=== PATIENT | female | born 1995 | race American Indian/Alaskan Native ===

== ENCOUNTER 2019-05-31 19:43 | Emergency (ER) | payer OTHER ==
[2019-05-31 20:07] VITALS: TEMP 98.8; BMI 19.0
--- NOTE | 2019-05-31 20:08 | PDOC ---
Rapid Medical Evaluation Time Seen by Provider: 05/31/19 20:07 Medical Evaluation: Vital Signs Temp Pulse Resp BP Pulse Ox 98.8 F 70 19 116/74 99 05/31/19 20:04 05/31/19 20:04 05/31/19 20:04 05/31/19 20:04 05/31/19 20:04 05/31/19 20:07 I have performed a brief in-person evaluation of this patient. The patient presents with a chief complaint of: 8 weeks , elevated liver enzymes/?hepatitis, ?uti, Pertinent physical exam findings:stable and in NAD, non-focal I have ordered the following:labs The patient will proceed to the ED for further evaluation.
[2019-05-31 21:39] LABS: BASO % 0.5 % (0-2.0); EOS % 0.5 % (0-4.5); HEMATOCRIT 38.3 % (32.4-45.2); HEMOGLOBIN 12.8 GM/dL (10.7-15.3); MCH 29.1 pg (25.7-33.7); MCHC 33.4 g/dl (32.0-36.0); MEAN CELL VOLUME 87.3 fl (80-96); MEAN PLT VOLUME 9.4 fl (7.5-11.1); MONO % 9.2 % (3.8-10.2); NEUT % 63.8 % (42.8-82.8); PLATELET COUNT 225 K/MM3 (134-434); RBC 4.38 M/mm3 (3.60-5.2); RDW 13.5 % (11.6-15.6); WHITE BLOOD COUNT 8.9 K/mm3 (4.0-10.0)
[2019-05-31 21:56] LABS: ALBUMIN 3.9 g/dl (3.4-5.0); BILIRUBIN,TOTAL 0.7 mg/dL (0.2-1); CALCIUM 9.8 mg/dL (8.5-10.1); CREATININE 0.5 mg/dL (0.55-1.3); POTASSIUM 4.2 mmol/L (3.5-5.1); TOT PROT 7.6 g/dl (6.4-8.2)
[2019-05-31 22:39] LABS: PH,URINE 5.5 (5.0-8.0); URINE APPEARANCE CLEAR; URINE BILIRUBIN NEGATIVE (NEGATIVE); URINE COLOR DK YELLOW; URINE GLUCOSE (UA) NEGATIVE (NEGATIVE); URINE KETONE 1+ (NEGATIVE); URINE LEUK ESTERASE NEGATIVE (NEGATIVE); URINE NITRITE NEGATIVE (NEGATIVE); URINE PROTEIN TRACE (NEGATIVE)
[2019-06-01 00:11] VITALS: BP 120/75; PULSE 72
--- NOTE | 2019-06-01 00:23 | PDOC ---
History of Present Illness - General Chief Complaint: Abnormal Lab Results (Outside) Stated Complaint: EVALUATION Time Seen by Provider: 05/31/19 20:07 Past History - Past Medical History Allergies/Adverse Reactions: Allergies Allergy/AdvReac Type Severity Reaction Status Date / Time No Known Allergies Allergy Verified 05/31/19 20:07 - Suicide/Smoking/Psychosocial Hx Smoking History: Never smoked *Physical Exam - Vital Signs Last Vital Signs Temp Pulse Resp BP Pulse Ox 98.8 F 72 18 120/75 100 05/31/19 20:04 06/01/19 00:11 06/01/19 00:11 06/01/19 00:11 06/01/19 00:11 ED Treatment Course - LABORATORY CBC & Chemistry Diagram: 05/31/19 21:11 05/31/19 21:11 - ADDITIONAL ORDERS Additional order review: Laboratory Results 05/31/19 05/31/19 22:30 21:11 Sodium 134 L Potassium 4.2 Chloride 100 Carbon Dioxide 26 Anion Gap 8 BUN 6.0 L Creatinine 0.5 L Est GFR (CKD-EPI)AfAm 154.81 Est GFR (CKD-EPI)NonAf 133.57 Random Glucose 85 Calcium 9.8 Total Bilirubin 0.7 AST 52 H ALT 167 H Alkaline Phosphatase 73 Total Protein 7.6 Albumin 3.9 Urine Color Dk yellow Urine Appearance Clear Urine pH 5.5 Ur Specific Paia 1.033 Urine Protein Trace Urine Glucose (UA) Negative Urine Ketones 1+ H Urine Blood Negative Urine Nitrite Negative Urine Bilirubin Negative Urine Urobilinogen 1.0 Ur Leukocyte Esterase Negative 05/31/19 21:11 RBC 4.38 MCV 87.3 MCHC 33.4 RDW 13.5 MPV 9.4 Neutrophils % 63.8 Lymphocytes % 26.0 Monocytes % 9.2 Eosinophils % 0.5 Basophils % 0.5 - RADIOLOGY Radiology Studies Ordered: Category Date Time Status ABDOMEN US -LIMITED [US] Stat Ultrasound 05/31/19 22:20 Taken *DC/Admit/Observation/Transfer Diagnosis at time of Disposition: Elevated liver enzymes - Discharge Dispostion Disposition: HOME Condition at time of disposition: Stable Decision to Admit order: No - Referrals - Patient Instructions Additional Instructions: You were evaluated for your elevated liver enzymes today You were given a copy of your lab work Your ultrasound did not show cholecystitis (gallbladder infection) You also had hepatitis labs drawn today as a precaution It is likely the cause of your elevated liver enzymes is due to the reglan you are taking Please stop the medication and follow up with your [facility] Return to the ER for pain, fever, vomiting, or if you have any changes in your symptoms - Post Discharge Activity Forms/Work/School Notes: Back to Work
== END 2019-06-01 00:35 | disposition home or self-care (01) ==
LOC: JER 19:43
DX: O26.891 Other specified pregnancy related conditions, first trimester (principal); O26.611 Liver and biliary tract disorders in pregnancy, first trimester; R94.5 Abnormal results of liver function studies; Z3A.08 8 weeks gestation of pregnancy
CPT/HCPCS: 36415; 76705-TC; 80053; 80074; 81003; 85025; 87086; 99282-25